=== PATIENT | female | born 2000 | race African-American/Black ===

== ENCOUNTER 2025-04-12 05:09 | Emergency (ER) | payer MEDICAID ==
[~2025-04-12] VITALS: Ht 160 cm; Wt 107.0 kg
[2025-04-12 05:11] VITALS: O2SAT 100
[2025-04-12 05:59] LABS: BASOPHILS % 0.2 % (0.0-2.0); EOSINOPHILS % 1.7 % (0.0-5.0); HEMATOCRIT. 34.8 % (36.0-48.0); HEMOGLOBIN. 11.6 g/dL (12.0-16.0); LYMPHOCYTES % 20.4 % (20.0-50.0); MEAN PLATELET VOLUME 8.4 fl (7.4-10.4); MONOCYTES % 7.0 % (2.0-8.0); NEUTROPHILS % 70.7 % (40.0-76.0); PLATELET 214 x1000/uL (130-400); RED BLOOD CELL COUNT 4.19 mill/uL (4.2-5.4); RED CELL DISTRIBUTION WIDTH 15.3 % (11.6-14.6)
[2025-04-12 06:15] VITALS: TEMP 36.8
[2025-04-12 06:20] LABS: CLARITY URINE CLEAR (CLEAR); COLOR URINE YELLOW (YELLOW); GLUCOSE URINE NEGATIVE (NEGATIVE); KETONES URINE NEGATIVE (NEGATIVE); LEUKOCYTE ESTERASE URINE NEGATIVE (NEGATIVE); NITRITE URINE NEGATIVE (NEGATIVE); OCCULT BLOOD URINE NEGATIVE (NEGATIVE); PH URINE 6.5 (4.5-8.0); PROTEIN URINE NEGATIVE (NEGATIVE); SPECIFIC GRAVITY URINE 1.020 (1.005-1.030); UROBILINOGEN URINE 0.2 E.U./dL (0.2-1.0)
[2025-04-12 06:20] LABS: CREATININE 0.7 mg/dL (0.6-1.0); UREA NITROGEN BLOOD 6 mg/dL (9-23)
[2025-04-12 06:29] LABS: B-HCG QUANTITATIVE > 1000 mIU/mL (<6)
[2025-04-12 06:33] VITALS: BP 124/65; PULSE 88; RESP 16; O2SAT 100
== END 2025-04-12 07:04 | disposition home or self-care (01) ==
LOC: ER 05:09
DX: O26.892 Other specified pregnancy related conditions, second trimester (principal); N85.8 Other specified noninflammatory disorders of uterus; R10.2 Pelvic and perineal pain; Z3A.22 22 weeks gestation of pregnancy
CPT/HCPCS: 36415; 76805; 80048; 81003; 84702; 85025; 86850; 86900; 99285